=== PATIENT | female | born 2000 | race American Indian/Alaskan Native ===

== ENCOUNTER 2020-07-11 13:28 | Emergency (ER) | payer OTHER ==
[2020-07-11] MEDS ORDERED: ALBUTEROL 2.5 MG/3 ML NEBU IH ONE (16:08)
[2020-07-11] MEDS ORDERED: methylPREDNISolone Sod Succinate 125 MG/2 ML INJ IV ONE (16:08)
[2020-07-11] MEDS ORDERED: IPRATROPIUM 0.02% NEBU 2.5 ML IH ONE (16:08)
[2020-07-11] MEDS ORDERED: SODIUM CHLORIDE 0.9% 1000 ML 1,000 ML IV ONE (16:13)
[2020-07-11] MEDS ORDERED: KETOROLAC 30 MG/1 ML INJ IV ONE (16:15)
--- NOTE | 2020-07-11 16:17 | Emergency Department Report ---
ED General Adult HPI - General Chief complaint: Headache Stated complaint: CHEST PAIN,BODY PAIN Time Seen by Provider: 07/11/20 16:13 Source: patient Mode of arrival: Ambulatory Limitations: No Limitations - History of Present Illness Initial comments: CC: "Help me please. I can't breathe." HPI: This is a 19 yo female with hx of asthma who presents with shortness of breath, body ache and headadche for 1 day. She has mild intermittent asthma. Last hospitalization for asthma age 11. -: Gradual, days(s) (1) Location: head Quality: aching Consistency: constant Improves with: none Worsens with: none Associated Symptoms: malaise, shortness of breath, other (body aches) - Related Data Previous Rx's Medication Instructions Recorded Last Taken Type Albuterol Mdi (or & Nicu Only) 2 puff IH QID PRN #8.5 gram 07/11/20 Unknown Rx [ProAir HFA Inhaler] Prednisone [predniSONE 10 mg 10 mg PO .TAPER #1 tab.ds.pk 07/11/20 Unknown Rx (6-Day Pack, 21 Tabs)] Allergies Allergy/AdvReac Type Severity Reaction Status Date / Time No Known Allergies Allergy Unverified 07/11/20 13:47 ED Review of Systems ROS: Stated complaint: CHEST PAIN,BODY PAIN Other details as noted in HPI Comment: All other systems reviewed and negative Constitutional: malaise Respiratory: shortness of breath Musculoskeletal: myalgia Neurological: headache ED Past Medical Hx - Past Medical History Previous Medical History?: Yes Hx Asthma: Yes - Medications Home Medications: Home Medications Medication Instructions Recorded Confirmed Last Taken Type Albuterol Mdi (or & Nicu Only) 2 puff IH QID PRN #8.5 gram 07/11/20 Unknown Rx [ProAir HFA Inhaler] Prednisone [predniSONE 10 mg 10 mg PO .TAPER #1 tab.ds.pk 07/11/20 Unknown Rx (6-Day Pack, 21 Tabs)] ED Physical Exam - General Limitations: No Limitations General appearance: alert, in no apparent distress, other (appears uncomfortable, crying, moaning) - Head Head exam: Present: atraumatic, normocephalic - Eye Eye exam: Present: normal appearance - ENT ENT exam: Present: mucous membranes moist - Neck Neck exam: Present: normal inspection, full ROM. Absent: tenderness, meningi smus - Respiratory Respiratory exam: Present: normal lung sounds bilaterally. Absent: respiratory distress, wheezes, rales, rhonchi - Cardiovascular Cardiovascular Exam: Present: regular rate, normal rhythm, normal heart sounds. Absent: systolic murmur, diastolic murmur, rubs, gallop - GI/Abdominal GI/Abdominal exam: Present: soft, normal bowel sounds. Absent: distended, tenderness, guarding, rebound - Extremities Exam Extremities exam: Present: normal inspection - Back Exam Back exam: Present: normal inspection - Neurological Exam Neurological exam: Present: alert, oriented X3 - Psychiatric Psychiatric exam: Present: anxious - Skin Skin exam: Present: warm, dry, intact, normal color. Absent: rash ED Course Vital Signs 07/11/20 07/11/20 07/11/20 13:48 16:38 16:39 Temperature 98.1 F Pulse Rate 74 84 Respiratory 22 16 16 Rate Blood Pressure 100/70 123/80 [Right] O2 Sat by Pulse 97 100 Oximetry 07/11/20 07/11/20 17:09 18:58 Temperature Pulse Rate Respiratory 16 16 Rate Blood Pressure [Right] O2 Sat by Pulse Oximetry - Reevaluation(s) Reevaluation #1: 07/11/20 18:14 I reexamined patient. She is awake and alert. She is receiving continuous nebulizer treatment. She now states that she feels as if her chest is going to explode. She is tachycardic 130 bpm. Oxygenation 100% on room air which is normal. She appears anxious. She feels a squeezing sensation in the middle of her chest. She denies use of oral contraceptives. I stopped the nebulizer treatment. Order stat chest radiograph. She is awake alert. She denies headache at this time. ED Medical Decision Making - Lab Data Laboratory Results - last 24 hr 07/11/20 07/11/20 19:28 19:28 HCG, Qual Negative HCG, Quant 0.527 - Radiology Data Radiology results: report reviewed Chest radiograph: No acute findings - Medical Decision Making Ms. Leach presents with headache body aches shortness of breath. Due to severe pain, patient was not able to cooperate with history taking upon my initial examination. I immediately ordered continuous nebulizer therapy, IV Solu-Medrol and IV ketorolac. Patient became more cooperative once her father arrived and after analgesic was received. She was able to give additional history. She explained that she felt her chest was going to explode while receiving nebulizer treatment. I immediately ordered stat chest radiograph. Due to possibility of , I asked the development technician to consent patient for chest radiograph. Father and patient became very upset with request for consent. Patient stated that she told triage nurse that she was possibly . Furthermore, she informed the triage nurse that she had a risk for COVID-19. Unfortunately, patient and father were upset with the treatment provided during this ED encounter. I understand that the 3-hour delay in arriving to the treatment room added to patient's frustration. Patient stated, "I would not bring a trent to this hospital." In spite frustratio, I did visited the room on 5 separate occasions to ensure that patient was improving. I kept the boyfriend, patient and father updated with the plan of treatment during each reassessment. Due to patient's hostile, aggressive language, I asked the nurse to give the results of the chest radiograph and test. I also asked the nurse to recommend outpatient COVID-19 testing. Patient is PERC negative for PE. Chest radiograph negative for pneumonia. I suspect patient has COVID-19 infection. I recommended outpatient testing. She is discharged home with prescription for albuterol MDI and prednisone taper. test is negative. Critical care attestation.: If time is entered above; I have spent that time in minutes in the direct care of this critically ill patient, excluding procedure time. ED Disposition Clinical Impression: Asthma exacerbation Disposition: DC-01 TO HOME OR SELFCARE Is pt being admited?: No Does the pt Need Aspirin: No Condition: Stable Instructions: Asthma (ED) Additional Instructions: Please see your primary physician or nearest urgent care center for COVID-19 testing. Prescriptions: Prednisone [predniSONE 10 mg (6-Day Pack, 21 Tabs)] 10 mg PO .TAPER #1 tab.ds.pk Albuterol Mdi (or & Nicu Only) [ProAir HFA Inhaler] 2 puff IH QID PRN #8.5 gram PRN Reason: Shortness Of Breath Referrals: MADELEINE BAEZ MD [Staff Physician] - 3-5 Days Forms: Work/School Release Form(ED)
[2020-07-11 16:40] VITALS: BP 123/80
[2020-07-11] MEDS ORDERED: ONDANSETRON 4 MG/2 ML INJ IV ONE (18:12)
[2020-07-11] MEDS ORDERED: MORPHINE 4 MG/1 ML INJ IV ONE (18:12)
[2020-07-11] MEDS: HYDROcodone/ACETAMINOPHEN 5-325 MG TAB PO ONE ×2 (19:57→20:32)
--- NOTE | 2020-07-11 20:37 | XRay Report ---
CHEST 1 VIEW INDICATION / CLINICAL INFORMATION: dyspnea chest pain. COMPARISON: 05/29/2009 FINDINGS: SUPPORT DEVICES: None. HEART / MEDIASTINUM: No significant abnormality. LUNGS / PLEURA: No significant pulmonary or pleural abnormality. No pneumothorax. ADDITIONAL FINDINGS: No significant additional findings. IMPRESSION: 1. No acute findings. Signer Name: Malachi Ko MD Signed: 07/11/2020 8:33 PM Workstation Name: [id number]
== END 2020-07-11 21:05 | disposition home or self-care (01) ==
LOC: ED 13:28
DX: J45.901 Unspecified asthma with (acute) exacerbation (principal); R06.02 Shortness of breath; R53.81 Other malaise; R51 Headache; Z79.899 Other long term (current) drug therapy
CPT/HCPCS: 36415; 71045; 84702; 84703; 94640; 96361; 96374; 96375; 99284; J1885; J2270; J2405; J2930; J7030